=== PATIENT | female | born 1945 | race African-American/Black ===

== ENCOUNTER 2019-08-20 12:38 | Emergency (ER) | payer MEDICARE, MEDICAID ==
[~2019-08-20] VITALS: Ht 167.6 cm; Wt 110.0 kg
--- NOTE | 2019-08-20 12:53 | NUR ---
EKG AT THE BEDSIDE
--- NOTE | 2019-08-20 13:44 | NUR ---
PT SBA TO BSC. UA OBTAINED. PT BTB. MONITOR IN PLACE. NO OTHER NEEDS AT THIS TIME.
[2019-08-20 13:54] LABS: BASOPHILS # (AUTO) 0.02 x10^3/uL (0-0.1); BASOPHILS % (AUTO) 0 % (0-1); EOSINOPHILS # (AUTO) 0.17 x10^3/uL (0-0.4); EOSINOPHILS % (AUTO) 2 % (1-7); LYMPHOCYTES # (AUTO) 2.18 x10^3/uL (1-3.4); LYMPHOCYTES % (AUTO) 29 % (22-44); MD NO; MEAN CORPUSCULAR HEMOGLOBIN 31.7 pg (27.0-34.8); MEAN CORPUSCULAR HGB CONC 33.6 g/dL (32.4-35.8); MEAN CORPUSCULAR VOLUME 94.3 fL (80-100); MEAN PLATELET VOLUME 8.7 fL (7.4-10.4); MONOCYTES # (AUTO) 0.62 x10^3/uL (0.2-0.8); MONOCYTES % (AUTO) 8 % (2-9); NEUTROPHILS # (AUTO) 4.43 x10^3/uL (1.8-6.8); NEUTROPHILS % (AUTO) 60 % (42-75); PLATELET COUNT 183 x10^3/uL (130-400); RED BLOOD COUNT 4.89 x10^6/uL (3.82-5.3); RED CELL DISTRIBUTION WIDTH 13.2 % (9.6-15.2)
[2019-08-20 14:05] LABS: ALBUMIN 2.9 g/dL (3.4-5.0); ANION GAP 6 mmol/L (5-15); CALCIUM 9.3 mg/dL (8.5-10.1); CHLORIDE 110 mmol/L (98-107); CREATININE 0.99 mg/dL (0.55-1.02)
[2019-08-20 14:20] VITALS: BP 107/50
[2019-08-20 14:21] LABS: MICROSCOPIC INDICATED
== END 2019-08-20 15:20 | disposition home or self-care (01) ==
LOC: ED 13:45
DX: B34.9 Viral infection, unspecified (principal); Z20.828 Contact with and (suspected) exposure to other viral communicable diseases; I51.7 Cardiomegaly; M79.10 Myalgia, unspecified site; R10.9 Unspecified abdominal pain; I10 Essential (primary) hypertension; J44.9 Chronic obstructive pulmonary disease, unspecified
CPT/HCPCS: 36415; 74022; 80048; 81001; 82040; 82962; 85025; 87077; 87086; 87186; 93005; 99285

== ENCOUNTER 2019-10-15 20:32 | Emergency (ER) | payer MEDICARE, MEDICAID ==
[~2019-10-15] VITALS: Ht 167.6 cm; Wt 109.1 kg
--- NOTE | 2019-10-15 20:48 | NUR ---
DR FRANKLIN BS FOR EXAM. C/O SHOULDER PAIN X 2 MONTHS; PAIN W/ LYING ON SHOULDERS. PT DENIES FALLLING, TRAUMA. ADMITS TO POSTERIOR NECK PAIN. DENIES CP. HOME OXYGEN 2LNC.
[2019-10-15] MEDS ORDERED: SODIUM CHLORIDE FLUSH 10ML SYR IVF ONE (21:00)
--- NOTE | 2019-10-15 21:00 | NUR ---
TO CT PER RAÚL
[2019-10-15 21:28] LABS: BASOPHILS # (AUTO) 0.03 x10^3/uL (0-0.1); BASOPHILS % (AUTO) 0 % (0-1); EOSINOPHILS # (AUTO) 0.06 x10^3/uL (0-0.4); EOSINOPHILS % (AUTO) 1 % (1-7); LYMPHOCYTES # (AUTO) 1.61 x10^3/uL (1-3.4); LYMPHOCYTES % (AUTO) 24 % (22-44); MD NO; MEAN CORPUSCULAR HEMOGLOBIN 32.4 pg (27.0-34.8); MEAN CORPUSCULAR HGB CONC 33.8 g/dL (32.4-35.8); MEAN CORPUSCULAR VOLUME 95.9 fL (80-100); MEAN PLATELET VOLUME 8.6 fL (7.4-10.4); MONOCYTES # (AUTO) 0.43 x10^3/uL (0.2-0.8); MONOCYTES % (AUTO) 7 % (2-9); NEUTROPHILS # (AUTO) 4.48 x10^3/uL (1.8-6.8); NEUTROPHILS % (AUTO) 68 % (42-75); PLATELET COUNT 213 x10^3/uL (130-400); RED BLOOD COUNT 4.57 x10^6/uL (3.82-5.3); RED CELL DISTRIBUTION WIDTH 14.7 % (9.6-15.2)
[2019-10-15] MEDS ORDERED: ONDANSETRON 2MG/ML, 2ML ONE (21:34)
[2019-10-15] MEDS ORDERED: MORPHINE SULFATE 4 MG/ML, 1ML ONE (21:34)
[2019-10-15 21:38] LABS: ALANINE AMINOTRANSFERASE 20 U/L (12-78); ALBUMIN 3.1 g/dL (3.4-5.0); ANION GAP 4 mmol/L (5-15); CHLORIDE 112 mmol/L (98-107)
[2019-10-15 21:41] LABS: ALKALINE PHOSPHATASE 73 U/L (45-117); BILIRUBIN,TOTAL 0.6 mg/dL (0.2-1.0); CREATININE 0.95 mg/dL (0.55-1.02); TOTAL PROTEIN 7.4 g/dL (6.4-8.2)
--- NOTE | 2019-10-15 21:53 | NUR ---
XR AT BS
[2019-10-15] MEDS ORDERED: DULO30CA44 PO (21:59)
[2019-10-15] MEDS ORDERED: PARO20TA4 PO (21:59)
[2019-10-15] MEDS ORDERED: HYDR25TA6 PO (21:59)
[2019-10-15] MEDS ORDERED: POTA10CA PO (21:59)
[2019-10-15] MEDS ORDERED: GABA-826 PO (21:59)
[2019-10-15] MEDS ORDERED: ONDANSETRON 2MG/ML, 2ML IVPush ONE (22:00)
[2019-10-15] MEDS ORDERED: MORPHINE SULFATE 4 MG/ML, 1ML IVPush PRN (22:00)
[2019-10-15] MEDS ORDERED: DULA1.5P SQ (22:02)
[2019-10-15] MEDS ORDERED: ATOR40TA78 PO (22:02)
[2019-10-15] MEDS ORDERED: GLIP10TA24 PO (22:02)
[2019-10-15] MEDS ORDERED: LISI10TA2 PO (22:02)
--- NOTE | 2019-10-15 22:12 | NUR ---
PT REPORT TO SONNY KIRAN. PT CARE TRANSFERRED.
[2019-10-15 22:18] VITALS: BP 145/69
--- NOTE | 2019-10-15 22:19 | NUR ---
PT RESTING ON GURNEY, XRAY AT BEDSIDE FOR SHOULDER STUDY. VSS AND WILL CONT TO MONITOR.
== END 2019-10-15 23:32 | disposition home or self-care (01) ==
LOC: ED 22:07
DX: M54.12 Radiculopathy, cervical region (principal); R94.31 Abnormal electrocardiogram [ECG] [EKG]; M19.012 Primary osteoarthritis, left shoulder; M19.011 Primary osteoarthritis, right shoulder; R06.02 Shortness of breath; J44.9 Chronic obstructive pulmonary disease, unspecified; I10 Essential (primary) hypertension
CPT/HCPCS: 36415; 71045; 72125; 73030; 80053; 85025; 93005; 96374; 96375; 99285; J2270; J2405

== ENCOUNTER 2021-01-17 12:26 | Emergency (ER) | payer MEDICARE, MEDICAID ==
[~2021-01-17] VITALS: Ht 167.6 cm; Wt 111.0 kg
[~2021-01-17 12:26] MED LIST: ATOR40TA78 PO; DULA1.5P SQ; DULO30CA44 PO; GABA-826 PO; GLIP10TA24 PO; HYDR25TA6 PO; LISI10TA19 PO; PARO20TA4 PO; POTA10CA PO
--- NOTE | 2021-01-17 13:24 | NUR ---
PT WC'D TO ROOM 31 W/ C/O L LOWER BACK PAIN WORSENED RECENTLY BUT PT STATES SHE HAS LOWER BACK PAIN "ALL THE TIME". PT ALSO HERE FOR MED REFILL OF GABAPENTIN AND LISINOPRIL. PT RESTING ON GURNEY. NADN. MONITORS APPLIED. VSS. WARM BLANKET PROVIDED. CALL LIGHT IN REACH.
--- NOTE | 2021-01-17 13:34 | NUR ---
ERP DR. OLMOS AT BEDSIDE FOR EVAL.
[2021-01-17] MEDS ORDERED: HYDROmorphone 2 MG/ML, 1ML ONE (13:52)
[2021-01-17] MEDS ORDERED: HYDROmorphone 1 MG/ML, 1ML INJ IM ONE (14:00)
--- NOTE | 2021-01-17 14:04 | NUR ---
PT RESTING ON GURNEY. NADN. TONY.
[2021-01-17 14:05] LABS: BASOPHILS % (AUTO) 1 % (0-1); EOSINOPHILS % (AUTO) 2 % (1-7); LYMPHOCYTES % (AUTO) 23 % (22-44); MEAN CORPUSCULAR HEMOGLOBIN 33.8 pg (27.0-34.8); MEAN CORPUSCULAR HGB CONC 34.2 g/dL (32.4-35.8); MEAN PLATELET VOLUME 8.6 fL (7.4-10.4); MONOCYTES % (AUTO) 10 % (2-9); NEUTROPHILS % (AUTO) 64 % (42-75); PLATELET COUNT 188 x10^3/uL (130-400); RED BLOOD COUNT 4.63 x10^6/uL (3.82-5.3); RED CELL DISTRIBUTION WIDTH 13.6 % (9.6-15.2)
[2021-01-17 14:17] LABS: ALBUMIN 3.1 g/dL (3.4-5.0); ANION GAP 3 mmol/L (5-15); CALCIUM 8.7 mg/dL (8.5-10.1); CHLORIDE 111 mmol/L (98-107); CREATININE 0.79 mg/dL (0.55-1.02)
--- NOTE | 2021-01-17 14:57 | NUR ---
PT AWARE OF NEED FOR UA. STATES "I CAN'T PEE RIGHT NOW". COMMODE LEFT AT BEDSIDE.
--- NOTE | 2021-01-17 15:18 | NUR ---
BREAK RN: PT SITTING ON FAMILY RA[facility] AT . [facility]. PT STATES SHE IS UNABLE TO PROVIDE URINE SAMPLE AT THIS TIME.
--- NOTE | 2021-01-17 16:04 | NUR ---
PT CONTINUING TO CRY AND STATES "I CAN'T PEE IN THE CUP I USUALLY USE A HAT". EDUCATED ON CONTAMINATION RISK IF PT URINATES IN A HAT. PT STATES "I'VE PEED IN A HAT BEFORE AND NEVER BEEN TOLD THAT". ERP DR. OLMOS NOTIFIED.
--- NOTE | 2021-01-17 16:18 | NUR ---
UA COLLECTED, LABELED, AND SENT TO LAB.
[2021-01-17 16:48] LABS: MICROSCOPIC INDICATED
--- NOTE | 2021-01-17 17:03 | NUR ---
PT RESTING ON GURNEY. NADN. TONY. CHART REVIEWED AND PLACED FOR RECHECK.
[2021-01-17 17:04] VITALS: BP 133/62
== END 2021-01-17 17:23 | disposition home or self-care (01) ==
LOC: ED 12:45
DX: S39.012A Strain of muscle, fascia and tendon of lower back, initial encounter (principal); I10 Essential (primary) hypertension; F17.210 Nicotine dependence, cigarettes, uncomplicated; E11.9 Type 2 diabetes mellitus without complications; J44.9 Chronic obstructive pulmonary disease, unspecified; X58.XXXA Exposure to other specified factors, initial encounter; Y93.89 Activity, other specified; Y92.89 Other specified places as the place of occurrence of the external cause; Y99.8 Other external cause status
CPT/HCPCS: 36415; 71045; 72110; 80048; 81001; 82040; 85025; 93005; 96372; 99285; J1170